=== PATIENT | male | born 2000 | race Caucasian/White ===

== ENCOUNTER 2024-07-25 17:50 | Emergency (ER) | payer OTHER, SELFPAY ==
[~2024-07-25] VITALS: Ht 175.3 cm; Wt 74.0 kg
[2024-07-25 19:25] LABS: HEMATOCRIT 43.3 % (42.0-52.0); HEMOGLOBIN 15.2 g/dl (13.5-17.5); MEAN CORPUSCULAR HGB CONC 35.1 g/dl (32.0-36.5); MEAN CORPUSCULAR VOLUME 85.4 fl (80.0-96.0); PLATELET COUNT, AUTOMATED 252 10^3/uL (150-450); RED BLOOD COUNT 5.07 10^6/uL (4.30-6.10); WHITE BLOOD COUNT 6.5 10^3/uL (4.0-10.0)
[2024-07-25 19:36] LABS: ETHYL ALCOHOL (ETHANOL) < 0.003 % (0.000-0.010)
[2024-07-25 19:38] LABS: SALICYLATE LEVEL < 3.0 MG/DL (<30)
[2024-07-25 19:39] LABS: ALBUMIN 4.8 G/DL (3.2-5.2); ALKALINE PHOSPHATASE 78 U/L (40-129); ALT/SGPT 19 U/L (7.0-40); AST/SGOT 19 U/L (<34); BILIRUBIN,DIRECT 0.1 MG/DL (<0.4); BILIRUBIN,TOTAL 0.5 MG/DL (0.3-1.2); BLOOD UREA NITROGEN 17 MG/DL (9-23); CALCIUM LEVEL 9.7 MG/DL (8.5-10.1); CARBON DIOXIDE LEVEL 26 MMOL/L (20-31); CHLORIDE LEVEL 104 MMOL/L (98-107); CREATININE FOR GFR 0.81 MG/DL (0.70-1.30); GLOMERULAR FILTRATION RATE > 60.0 (>60); GLUCOSE, FASTING 77 MG/DL (60-100); POTASSIUM SERUM 4.1 MMOL/L (3.5-5.1); SODIUM LEVEL 140 MMOL/L (136-145); TOTAL PROTEIN 8.4 G/DL (5.7-8.2)
[2024-07-25 19:41] LABS: THYROID STIMULATING HORMONE 2.856 uIU/ML (0.55-4.78)
[2024-07-25] MEDS ORDERED: HOME MED LIST COMPLETE! XX SCH (19:45)
[2024-07-25 19:50] LABS: AMPHETAMINES LEVEL URINE NEGATIVE (NEGATIVE); BARBITURATES URINE NEGATIVE (NEGATIVE); BENZODIAZEPINES URINE NEGATIVE (NEGATIVE); COCAINE METABOLITE URINE NEGATIVE (NEGATIVE); METHADONE URINE NEGATIVE (NEGATIVE); OPIATES URINE NEGATIVE (NEGATIVE); PHENCYCLIDINE URINE NEGATIVE (NEGATIVE)
[2024-07-25 20:00] LABS: CANNABINOIDS URINE POSITIVE (NEGATIVE)
[2024-07-25 20:49] VITALS: BP 144/67; TEMP 97.2; O2SAT 99
== END 2024-07-25 20:51 | disposition home or self-care (01) ==
LOC: M ED 17:50
DX: F43.0 Acute stress reaction (principal)